=== PATIENT | female | born 2005 | race Caucasian/White ===

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

== ENCOUNTER → 2023-01-07 | Outpatient (CLI) | payer OTHER, SELFPAY | END | disposition home or self-care (01) | LOC: LABSPEC 01-08 07:03 | PROVIDERS: PCP Family Medicine; Visit Provider Family Medicine | DX: J02.9 Acute pharyngitis, unspecified (principal) | CPT/HCPCS: 87070; 87077; 87205 ==

== ENCOUNTER → 2023-04-22 | Outpatient (CLI) | payer OTHER, SELFPAY ==
[2023-04-22 16:05] LABS: Thyroid Stim Hormone (TSH) 1.59 uIU/mL (0.358-3.74)
== END | disposition home or self-care (01) ==
LOC: MFPLAB 11:16
PROVIDERS: Nurse Practitioner Family; PCP Family Medicine; Visit Provider Family Medicine
DX: Z13.29 Encounter for screening for other suspected endocrine disorder (principal)
CPT/HCPCS: 36415; 84443

== ENCOUNTER → 2024-09-21 | Outpatient (CLI) | payer OTHER, SELFPAY ==
[2024-09-21 18:03] LABS: Absolute Lymphocyte Count 2.14 X10^3/uL (0.83-4.51); Absolute Neutrophil Count 4.8 X10^3/uL (2.0-7.7); Basophil# 0.03 X10^3/uL; Basophil% 0.4 % (0-1); Eosinophil# 0.12 X10^3/uL; Eosinophils% 1.6 % (0-5); Hematocrit 42.7 % (37-47); Hemoglobin 14.5 g/dL (12.0-15.0); Lymphocyte # 2.14 X10^3/ul (0.83-4.51); Lymphocyte % 27.9 % (19-41); Mean Corpuscular Hgb 29.8 pg (27.0-32.0); Mean Corpuscular Volume 87.7 fL (81-99); Mean Platelet Vol. 9.2 fl (6.2-12.0); Monocyte# 0.52 X10^3/uL; Monocyte% 6.8 % (0-10); NRBC Flagged by Analyzer 0 % (0-5); Neutrophil # 4.84 X10^3/uL (2.7-7.7); Neutrophil % 63.2 % (47-70); Platelet Count 311 K/mm3 (150-450); RBC Distribution Width SD 38.5 fl (35.1-43.9); Red Blood Count 4.87 M/mm3 (4.2-5.4); White Blood Count 7.7 K/mm3 (4.4-11.0)
[2024-09-21 18:36] LABS: PTHIN 34 pg/mL (11-61)
[2024-09-21 18:46] LABS: ALB/GLOB Ratio 1.4 RATIO (0.9-2.4); AST(SGOT) 17 U/L (<=31); Alanine Aminotransfer ALT/SGPT 18 U/L (<=34); Albumin, Serum 4.5 g/dL (3.5-5.0); Alkaline Phosphatase 70 U/L (35-104); Anion Gap 13 (5-15); BUN 10 mg/dL (4-19); BUN/Creat Ratio 15.2 RATIO (10-20); Calcium 9.9 mg/dL (7.6-11.0); Calcium,Total 9.9 mg/dL (7.6-11.0); Chloride 102 mmol/L (98-108); Creatinine, Serum 0.68 mg/dL (0.70-1.20); EST Glomerular Filtration Rate 128 (>60); Follicle Stimulating Hormone 5.9 mIU/mL; Free T3 3.6 pg/mL (2.18-3.98); Globulin 3.2 g/dL (2.2-4.2); Glucose 81 mg/dL (70-99); Protein, Total 7.6 g/dL (5.9-8.4); Sodium Level 140 mmol/L (133-145); Total Bilirubin 0.18 mg/dL (0.00-1.30)
== END | disposition home or self-care (01) ==
PROVIDERS: PCP Family Medicine; Referring Provider Dermatology Pediatric Dermatology; Visit Provider Dermatology Pediatric Dermatology
DX: E28.2 Polycystic ovarian syndrome (principal); L64.8 Other androgenic alopecia; D89.89 Other specified disorders involving the immune mechanism, not elsewhere classified
CPT/HCPCS: 36415; 80053; 82157; 82310; 82533; 82627; 83001; 83970; 84146; 84270; 84402; 84403; 84439; 84443; 84481; 85025; 86376; 82626

== ENCOUNTER → 2024-09-22 | Outpatient (CLI) | payer OTHER, SELFPAY ==
--- OUTSIDE RECORDS SUMMARY | 2024-09-22 08:05 | XMS RPT_ITS | CCD ---
Author Organization [facility] Care Team Providers Care Stonemason Apprentice Name Role Phone Williams Kelly Admitting Unavailable Williams Kelly Attending Unavailable No Doctor Assigned, Nodr Primary Care Unavail able Vargas Santoro Unavailable Kayy Skelton Unavailable Unavailable Vargas Santoro Referring Unavailable Yvan Vargas Primary Care Unavailable Yvan Vargas Attending Unavailable Santoro, Vargas Primary Care Unavailable Santoro, Vargas Attending Unavailable Santoro, Vargas Primary Care Unavailable Santoro, Vargas Attending Unavailable Santoro, Vargas Referring Unavailable Unavailable Primary Care Provider Unavailabl e Allergies Allergy Classification Reported Allergen(s) Allergy Type Date of Onset Reaction(s) Facility Cephalosporins (antibiotic) (1 source) cefdinir Drug Allergy Hives/Urticaria [facility] Oseltamivir (1 source) Oseltamivir Drug Allergy Other [facility] Comment on above: WORSENING SYMPTOMS (6 sources) cefdinir; Translations: [CEFDINIR] Drug Allergy 1 Diarrhea, Hives [facility] Work Phone: (1 source) cefdinir Drug Allergy 1 [facility] Repository (4 sources) Oseltamivir; Translations: [OSELTAMIVIR] Drug Allergy 2 Other: See Comments [facility] Work Phone: Medications Current Medications Medication Drug Class(es) Dates Sig (Normalized) Sig (Original) amoxicillin 50 mg/ml oral suspension (2 sources) Penicillin-class Antibacterial Start: 06-09-2013 take 250 mg by mouth every twelve hours Amoxicillin Active 250 MG PO Q12H June 09, 2013 12:00am cetirizine hydrochloride 10 mg oral tablet (2 sources) Histamine-1 Receptor Antagonist Start: 06-09-2013 take 5 mg by mouth once daily Cetirizine Hcl (Zyrtec) 10 MG tablet Active 5 MG PO DAILY June 09, 2013 12:00am levoFLOXacin 750 mg oral tablet (2 sources) Quinolone Antimicrobial Start: 12-16-2020 take 750 mg by mouth once daily Levofloxacin Active 750 MG PO DAILY December 15, 2020 11:00pm Completed/Discontinued Medications Medication Drug Class(es) Dates Sig (Normalized) Sig (Original) busPIRone hydrochloride 5 mg oral tablet (3 sources) Start: 02-05-2022 busPIRone (BUSPAR) 5 mg tablet Ethinyl Estradiol / Norethindrone (3 sources) Estrogen Start: 03-27-2022 Norethindrone Acet-Ethinyl Est 1-20 mg-mcg per tablet ibuprofen 800 mg oral tablet (3 sources) Nonsteroidal Anti-inflammatory Drug Start: 04-14-2022 take 1 tablet by mouth every eight hours as needed for pain ibuprofen (MOTRIN) 800 mg tablet Indications: Flu-like symptoms Take 1 tablet by mouth every 8 hours as needed for pain. Take with food. 30 tablet 0 04/14/2022 Active Comment on above: Take 1 tablet by maria luz th every 8 hours as needed for pain. Take with food. ondansetron 4 mg disintegrating oral tablet (3 sources) Serotonin-3 Receptor Antagonist Start: 04-14-2022 take 1 tablet by mouth every six hours as needed for nausea and nausea ondansetron orally disintegrating (ZOFRAN ODT) 4 mg disintegrating tablet Indications: Nausea Take 1 tablet by mouth every 6 hours as needed for nausea/vomiting. 15 tablet 0 04/14/2022 Active Comment on above: Take 1 tablet by maria luz th every 6 hours as needed for nausea/vomiting. NEGATED: Highlighted row has not occurred!No Current Medications (1 source) No Current Medications Problems Active Problems Problem Classification Problem Date Documented Da te Episodic/Chronic Immunizations and screening for infectious disease (2 sources) Contact with or exposure to other viral diseases; Translations: [Close exposure to 2019-nCoV] Episodic Nausea and vomiting (1 source) Nausea; Translations: [Nausea] Episodic Other upper respiratory disease (1 source) Other seasonal allergic rhinitis; Translations: [Other seasonal allergic rhinitis] Onset: 03-15-2022 Chronic Other upper respiratory infections (1 source) Sore throat symptom; Translations: [Acute pharyngitis, unspecified] 01-06-2023 Episodic Pneumonia (except that caused by tuberculosis or sexually transmitted disease) (2 sources) Community acquired pneumonia; Translations: [Pneumonia, unspecified organism] Episodic Residual codes; unclassified (1 source) Influenza-like symptoms; Translations: [Other general symptoms and signs] Episodic Unclassified (2 sources) [facility] 11-02-2020 Comment on above: [facility] Viral infection (1 source) Viral disease; Translations: [Viral infection, unspecified] 01-06-2023 Episodic Viral infection (1 source) COVID-19; Translations: [COVID-19] Onset: 01-03-2022 Past or Other Problems Problem Classification Problem Date Documented Da te Episodic/Chronic Other connective tissue disease (1 source) Other specified soft tissue disorders; Translations: [Other specified soft tissue disorders] Onset: 11-07-2021 Episodic Results Test Name Value Interpretation Reference Range Facility CNOV 01-06-2023 CNOV Office Visit ([facility] ) ADIN PEARCE ([id number]) 1 F Date Time Provider Department 01/06/23 2:45 PM MESERET CARLOS [facility] During your visit today, we recorded the following information about you: Temperature Pulse Respiration Blood pressure 99.7 degrees 102/minute 18/minute 106/68 Weight 97.3 kg Meseret Carlos, CHRIS.DIRECTOR OF PUBLIC HEALTH 01/06/2023 3:14 PM Signed Subjective HPI Nontoxic-appearing female presents urgent care accompanied with mother. Chief complaint sore throat headache fever fatigue. Duration of symptoms 2 days. Associated symptoms listed above. Most predominant symptom today is sore throat. Noticed some white spots on back of her tonsils. Presents today for evaluation. No known sick contacts. Is a college student. Has not taken any OTC medications recently. Denies any patient is decreased range of motion of neck. Denies any high fever body aches chills productive cough chest pain shortness of breath pleuritic pain hemoptysis nausea vomiting abdominal pain change in bowel or bladder habits. Past medical history prescription medication use and allergies reviewed. .Patient presents with: Sore Throat: SHEPARD, fever x2 days History reviewed. No pertinent past medical history. History reviewed. No pertinent surgical history. ALLERGIES Cefdinir and Oseltamivir MEDICATIONS busPIRone (BUSPAR) 5 mg tablet Norethindrone Acet-Ethinyl Est 1-20 mg-mcg per tablet ibuprofen (MOTRIN) 800 mg tablet Take 1 tablet by mouth every 8 hours as needed for pain. Take with food. ondansetron orally disintegrating (ZOFRAN ODT) 4 mg disintegrating tablet Take 1 tablet by mouth every 6 hours as needed for nausea/vomiting. History reviewed. No pertinent family history. Social History Tobacco Use Smoking status: Never Passive exposure: Never Smokeless tobacco: Never BP 106/68 Pulse 102 Temp 37.6 ?C (99.7 ?F) Resp 18 Wt 97.3 kg (214 lb 6.4 oz) SpO2 98% Review of Systems Constitutional: Positive for chills, fever and malaise/fatigue. HENT: Positive for sore throat. Negative for congestion, ear discharge, ear pain and sinus pain. Eyes: Negative for blurred vision, pain, discharge and redness. Respiratory: Negative for cough, hemoptysis, sputum production, shortness of breath, wheezing and stridor. Cardiovascular: Negative for chest pain. Gastrointestinal: Negative for abdominal pain, diarrhea, nausea and vomiting. Musculoskeletal: Positive for myalgias. Skin: Negative for itching and rash. Neurological: Negative for dizziness and headaches. Objective Physical Exam Constitutional: General: She is not in acute distress. Appearance: She is not diaphoretic. HENT: Head: Normocephalic. Jaw: No trismus, tenderness, swelling or pain on movement. Right Ear: Tympanic membrane, ear canal and external ear normal. Left Ear: Tympanic membrane, ear canal and external ear normal. Nose: Congestion present. Mouth/Throat: Lips: [place]. Mouth: Mucous membranes are moist. Pharynx: Oropharynx is clear. Uvula midline. Posterior oropharyngeal erythema present. No pharyngeal swelling, oropharyngeal exudate or uvula swelling. Tonsils: Tonsillar exudate present. No tonsillar abscesses. 2+ on the right. 2+ on the left. Eyes: Conjunctiva/sclera: Conjunctivae normal. Pupils: Pupils are equal, round, and reactive to light. Cardiovascular: Rate and Rhythm: Normal rate and regular rhythm. Heart sounds: Normal heart sounds. Pulmonary: Effort: Pulmonary effort is normal. No tachypnea, accessory muscle usage or respiratory distress. Breath sounds: Normal breath sounds. No stridor. No wheezing, rhonchi or rales. Abdominal: General: There is no distension. Palpations: Abdomen is soft. Tenderness: There is no abdominal tenderness. There is no guarding or rebound. Musculoskeletal: Cervical back: Normal range of motion and neck supple. No edema, erythema, rigidity or tenderness. No pain with movement. Normal range of motion. Lymphadenopathy: Cervical: No cervical adenopathy. Skin: General: Skin is warm and dry. Neurological: Mental Status: She is alert and oriented to person, place, and time. ASSESSMENT/PLAN: 1. Sore throat - ICD9: 462, ICD10: J02.9 (primary diagnosis) - STREP A MOLECULAR (POC) 2. Viral illness - ICD9: 079.99, ICD10: B34.9 Strep test negative. Diagnosed with viral illness. Suspicious of mono. Will not test due to the 2 days of illness at this time. Follow-up with PCP on Saturday if symptoms are not improving. Red flags prompt reevaluation discussed. Patient was educated on supportive therapies. Patient was instructed to immediately proceed to emergency room for any new, worsening, or symptoms lasting longer than anticipated. The patient's clinical presentation is otherwise unremarkable at this time. Based on exam and clinical finding, the patient is stable f (more content not included)... Normal [facility] STREP A MOLECULAR (POC)on Procedural Control Valid [facility] Strep A (POCT) Negative Negative [facility] 04-15-2022 CNPN Telephone ([facility]WSTR) ADIN PEARCE ([id number]) 1 F Date Time Provider Department 04/15/22 ADRI RUSSELL During your visit today, we recorded the following information about you: Adri Russell APRN.CNP 04/15/2022 7:42 AM Signed Please notify of POSITIVE INFLUENZA A and negative covid test. Continue comfort measures for symptoms as discussed at visit. Any worsening symptoms follow up with PCP or ER. KING Payton LPN 04/15/2022 8:37 AM Signed Patient's mother notified.Rakel Boogie LPN Allergies As of Date: 04/15/2022 Noted Allergy Reaction CEFDINIR 12/15/2020 6 - Diarrhea 4 - Hives OSELTAMIVIR 04/14/2022 14 - Other: See Comments Date Reviewed: Never Reviewed Reason for Visit: Results [95] Prescriptions as of 04/15/2022 - busPIRone (BUSPAR) 5 mg tablet - Norethindrone Acet-Ethinyl Est 1-20 mg-mcg per tablet - ibuprofen (MOTRIN) 800 mg tablet Take 1 tablet by mouth every 8 hours as needed for pain. Take with food. - ondansetron orally disintegrating (ZOFRAN ODT) 4 mg disintegrating tablet Take 1 tablet by mouth every 6 hours as needed for nausea/vomiting. Problem List As Of Date: 04/15/2022 (None) Encounter Status:Closed by RAKEL BOOGIE LPN on 04/15/22 [facility] CNOVon 04-14-2022 CNOV Office Visit (UCWSTR ) ADIN PEARCE ([id number]) 1 F Date Time Provider Department 04/14/22 10:30 AM ERIN BAILEY During your visit today, we recorded the following information about you: Temperature Pulse Respiration Blood pressure 100.4 degrees 98/minute 16/minute 122/70 Weight 98.9 kg Erin Bailey PA-C 04/14/2022 11:24 AM Signed Subjective HPI HPI Adin Pearce is a 16 year old female who presents today for CC of sore throat, congestion, body aches, chills, facial pain/perssure, chills/sweats since yesterday. Notes some nausea as well, but could be from the covid swab. Pt has tried advil with minimal relief in symptoms. BP 122/70 Pulse 98 Temp (!) 38 ?C (100.4 ?F) Resp 16 Wt 98.9 kg (218 lb) SpO2 96% ALLERGIES Allergen Reactions Cefdinir Diarrhea, Hives Oseltamivir Other: See Comments There is no problem list on file for this patient. No family history on file. Social History Tobacco Use Smoking status: Never Passive exposure: Never Smokeless tobacco: Never Review of Systems Constitutional: Positive for chills, fever and malaise/fatigue. HENT: Positive for congestion and sinus pain. Negative for ear pain and sore throat. Respiratory: Negative for cough, sputum production, shortness of breath and wheezing. Gastrointestinal: Positive for nausea. Negative for vomiting. Musculoskeletal: Positive for back pain and myalgias. Neurological: Negative for headaches. Objective BP 122/70 Pulse 98 Temp (!) 38 ?C (100.4 ?F) Resp 16 Wt 98.9 kg (218 lb) SpO2 96% Physical Exam Constitutional: General: She is not in acute distress. Appearance: She is well-developed. She is ill-appearing (Mild; Generally fatigued appearance.). She is not toxic-appearing. HENT: Head: Normocephalic. Nose: Mucosal edema present. No rhinorrhea. Right Sinus: No maxillary sinus tenderness or frontal sinus tenderness. Left Sinus: No maxillary sinus tenderness or frontal sinus tenderness. Mouth/Throat: Pharynx: Uvula midline. Posterior oropharyngeal erythema present. No oropharyngeal exudate. Tonsils: No tonsillar abscesses. Eyes: General: Lids are normal. Conjunctiva/sclera: Conjunctivae normal. Cardiovascular: Rate and Rhythm: Normal rate and regular rhythm. Heart sounds: S1 normal and S2 normal. No friction rub. Pulmonary: Effort: Pulmonary effort is normal. Breath sounds: Normal breath sounds. No wheezing, rhonchi or rales. Lymphadenopathy: Head: Right side of head: No submental, submandibular, tonsillar, preauricular, posterior auricular or occipital adenopathy. Left side of head: No submental, submandibular, tonsillar, preauricular, posterior auricular or occipital adenopathy. Cervical: Right cervical: No superficial or posterior cervical adenopathy. Left cervical: No superficial or posterior cervical adenopathy. Neurological: Mental Status: She is alert and oriented to person, place, and time. ASSESSMENT/PLAN: 1. Flu-like symptoms - ICD9: 780.99, ICD10: R68.89 (primary diagnosis) Suspect flu based on clinical presentation. Covid and flu testing ordered; Results will be released to [facility] in 24-48 hours.Discussed quarantine, social distancing, hand washing/proper hygiene. Rest, fluids, Symptomatic tx with IBU and Tylenol discussed. - IBUPROFEN 800 MG TABLET 2. Nausea - ICD9: 787.02, ICD10: R11.0 Rx for zofran to assist w/ nausea. Discussed medication indications, proper use, and potential adverse effects. All questions and concerns addressed to patient satisfaction. - ONDANSETRON 4 MG DISINTEGRATING TABLET Pt advised to see PCP if symptoms persist or progress. Reviewed red flags with patient and when to seek care sooner. The patient indicates understanding of these issues and agrees with the plan. DAI Tsai PA-C 04/14/2022 10:47 AM Addendum Sudafed behind the counter Can alternate between Ibuprofen (800 MG) and Tylenol (1000) mg every 3-4 hours Max dosing of Ibuprofen 2400 mg in 24 hour period Max dosing of Tylenol is 3000 mg in 24 hour period [facility] PATIENT INFO INFLUENZA INTRODUCTION Influenza (commonly called the flu) is a highly contagious illness that can occur in children or adults of any age. It occurs more often in the winter months because people spend more time in close contact with one another. The flu is spread easily from [id number] by coughing, sneezing, or touching surfaces. Every year, complications of the flu require more than 200,000 people in the [place] to be hospitalized. Serious illness is more likely in the very young, older adults, women, and people who have certain health problems such as asthma or other forms of lung disease. There have been several widespread flu outbreaks (called pandemics), which led to the deaths of many people world (more content not included)... Normal [facility] Influenza virus A and B RNA and SARS-CoV-2 (COVID-19) N gene panel YOVANY+probe (Resp)on 04-14-2022 FLUAV RNA YOVANY+probe Ql (Unsp spec) Positive Abnormal Negative for Influenza A by RT-PCR [facility] FLUBV RNA YOVANY+probe Ql (Unsp spec) Negative Negative for Influenza B by RT-PCR [facility] SARS-CoV-2 (COVID-19) RNA YOVANY+probe Ql (Resp) SARS-CoV-2 (Agent of COVID-19) Not Detected by RT-PCR or equivalent method. Not Detected [facility] Allergen, MedhatRasjagdish 2021 COMMENT Comment Normal . [facility] Comment on above: Order Comment: Order Date: 03/12/22 Order Info: [id number] - [facility] Comments: confirm dog allergy Result Comment: Chris perez of Specific IgE Class Description of Class ----- < 0.10 0 Negative 0.10 - 0.31 0/I Equivocal/Low 0.32 - 0.55 I Low 0.56 - 1.40 II Moderate 1.41 - 3.90 III High 3.91 - 19.00 IV Very High 19.01 - 100.00 V Very High >100.00 Very High Performed By: #### L 5500.0300 #### [facility] [address] [place], [address] Mouse Urine <0.10 Normal Class 0 [facility] Comment on above: Order Comment: Order Date: 03/12/22 Order Info: [id number] - [facility] Comments: confirm dog allergy Result Comment: Perf ormed at: - [facility] [address] [id number] Sample Display Preparer: Roque Flor MD, Phone: [phone] Performed By: #### L [id number] #### [facility] [address] [place], [address] Allergen, Kaylynn 2021 A. ALTERNATA <0.10 Normal Class 0 [facility] Comment on above: Order Comment: Order Date: 03/12/22 Order Info: [id number] - [facility] Comments: confirm dog allergy Performed By: #### L 5500.0300 #### [facility] [address] [place], [address] BERMUDA GRASS <0.10 Normal Class 0 [facility] Comment on above: Order Comment: Order Date: 03/12/22 Order Info: [id number] - [facility] Comments: confirm dog allergy Performed By: #### L 5500.0300 #### [facility] [address] [place], [address] [place], [place] <0.10 Normal Class 0 [facility] Comment on above: Order Comment: Order Date: 03/12/22 Order Info: [id number] - [facility] Comments: confirm dog allergy Performed By: #### L 5500.0300 #### [facility] [address] [place], [address] CAT HAIR/DANDER <0.10 Normal Class 0 [facility] Comment on above: Order Comment: Order Date: 03/12/22 Order Info: [id number] - [facility] Comments: confirm dog allergy Performed By: #### L 5500.0300 #### [facility] [address] [place], [address] D FARINAE MITE 4.24 kU/L Abnormal Class IV [facility] Comment on above: Order Comment: Order Date: 03/12/22 Order Info: [id number] - [facility] Comments: confirm dog allergy Performed By: #### L 5500.0300 #### [facility] [address] [place], [address] D PTERONYSSINUS 2.50 kU/L Abnormal Class III [facility] Comment on above: Order Comment: Order Date: 03/12/22 Order Info: [id number] - [facility] Comments: confirm dog allergy Performed By: #### L 5500.0300 #### [facility] [address] [place], [address] DOG EPITHELIA 0.35 kU/L Abnormal Class I [facility] Comment on above: Order Comment: Order Date: 03/12/22 Order Info: [id number] - [facility] Comments: confirm dog allergy Performed By: #### L 5500.0300 #### [facility] [address] [place], [address] ELM,AMER WHITE <0.10 Normal Class 0 [facility] Comment on above: Order Comment: Order Date: 03/12/22 Order Info: [id number] - [facility] Comments: confirm dog allergy Performed By: #### L 5500.0300 #### [facility] [address] [place], [address] OAK, WHITE <0.10 Normal Class 0 [facility] Comment on above: Order Comment: Order Date: 03/12/22 Order Info: [id number] - [facility] Comments: confirm dog allergy Performed By: #### L 5500.0300 #### [facility] [address] [place], [address] PLANTAIN,ENGLSH <0.10 Normal Class 0 [facility] Comment on above: Order Comment: Order Date: 03/12/22 Order Info: [id number] - [facility] Comments: confirm dog allergy Performed By: #### L 5500.0300 #### [facility] [address] [place], [address] RAGWEED SH/COM <0.10 Normal Class 0 [facility] Comment on above: Order Comment: Order Date: 03/12/22 Order Info: [id number] - [facility] Comments: confirm dog allergy Performed By: #### L 5500.0300 #### [facility] [address] [facility] [place], [address] COVID 19, YOVANY [facility](RT COLLECT )on 12-28-2021 SARS-CoV-2 (COVID-19) RNA YOVANY+probe Ql (Unsp spec) Detected Normal Not Detect [facility] Comment on above: Result Comment: Norm al Reference Range: Not Detected Method:(RT-PCR) real-time reverse transcriptase PCR [employer] ABBY Instrument *The Food and Drug Administration (FDA) has issued an Emergency Use Authorization (EAU) for the ABBY SARS-CoV-2 Assay for the rapid detection of the virus that causes COVID-19. This test has been validated, but the FDAs independent review of this validation is pending. *Negative results do not preclude infection and should not be used as the sole basis for treatment or patient management. Optimum specimen types and timing for peak viral levels during infections caused by SARS-CoV-2 have not been determined. Collection of multiple specimens from the same patient may be necessary to detect the virus. The possibility of a false negative result should be considered if the patient has clinical presentation or has had recent exposure. Performed By: #### L 3400.2405 #### [facility] [address] [facility] [address] [place], [place], [address] Laboratory - Microbiology an d Antimicrobial susceptibilityon 12-28-2021 SARS-CoV-2 (COVID-19) RNA YOVANY+probe Ql (Unsp spec) Detected Not Detect [facility] Work Phone: Comment on above: Normal Reference Ran ge: Not DetectedMethod:(RT-PCR) real-time reverse transcriptase PCRLuminex ABBY Instrument*The Food and Drug Administration (FDA) has issued an Emergency Use Authorization (EAU) for the ABBY SARS-CoV-2 Assay for the rapid detection of the virus that causes COVID-19. This test has been validated, but the FDAs independent review of this validation is pending.*Negative results do not preclude infection and should not be used as the sole basis for treatment or patient management. Optimum specimen types and timing for peak viral levels during infections caused by SARS-CoV-2 have not been determined. Collection of multiple specimens from the same patient may be necessary to detect the virus. The possibility of a false negative result should be considered if the patient has clinical presentation or has had recent exposure. Absolute lymphocyte counton 11-02-2021 Lymphocytes Auto (Unsp spec) [#/Vol] 2.27 10*3/uL 0.83-4.51 [facility] Work Phone: Basophil percentageon 2021 Basophils/100 WBC (Bld) 0.6 % 0-1 [facility] Work Phone: Bilirubin [Mass/Vol] 0.20 mg/dL 0.20-1.00 [facility] Work Phone: Comment on above: For patients on eltr ombopag therapy, use of Dimension [place] TBIL is not recommended. Chloride [Moles/Vol] 105 mmol/L 98-107 [facility] Work Phone: Eosinophils/100 WBC (Bld) 0.7 % 0-3 [facility] Work Phone: Glucose [Mass/Vol] 81 mg/dL 74-106 [facility] Work Phone: Neutrophils (Bld) [#/Vol] 5.4 10*3/uL 2.0-7.7 [facility] Work Phone: Neutrophils/100 WBC (Bld) 65.2 % 34-64 [facility] Work Phone: Potassium [Moles/Vol] 3.9 mmol/L 3.5-5.1 [facility] Work Phone: Protein [Mass/Vol] 8.2 g/dL 6.4-8.2 [facility] Work Phone: Sodium [Moles/Vol] 137 mmol/L 136-145 [facility] Work Phone: WBC (Bld) [#/Vol] 8.3 10*3/uL 4.5-13.0 [facility] Work Phone: Blood erythrocytes count (nu mber/volume)on 11-02-2021 RBC (Bld) [#/Vol] 4.93 10*6/uL 4.1-4.8 [facility] Work Phone: Blood hemoglobin measurement (mass/volume)on 11-02-2021 Hemoglobin (Bld) [Mass/Vol] 14.1 g/dL 12.0-15.0 [facility] Work Phone: Blood lymphocytes/100 leukoc yteson 11-02-2021 Lymphocytes/100 WBC (Bld) 27.5 % 25-45 [facility] Work Phone: [phone] Blood monocytes/100 leukocyt eson 11-02-2021 Monocytes/100 WBC (Bld) 5.6 % 3-6 [facility] Work Phone: Blood platelet mean volumeon 11-02-2021 Platelet mean volume (Bld) [Entitic vol] 9.5 fL 6.2-12.0 [facility] Work Phone: CBC W/Diff, Automatedon - Absolute Lymph 2.27 X10 3/uL Normal 0.83-4.51 [facility] Comment on above: Order Comment: Order Date: 11/02/21 Order Info: 0184-1 - CBCD Performed By: #### L 503.6550, L100.0100, L501.9520, L500.4050, L503.6150 #### [facility] [address] [place], [address] Absolute Neut 5.4 X10 3/uL Normal 2.0-7.7 [facility] Comment on above: Order Comment: Order Date: 11/02/21 Order Info: 0184-1 - CBCD Performed By: #### L 503.6550, L100.0100, L501.9520, L500.4050, L503.6150 #### [facility] [address] [place], [address] Basophils/100 WBC (Bld) 0.6 % Normal 0-1 [facility] Comment on above: Order Comment: Order Date: 11/02/21 Order Info: 0184-1 - CBCD Performed By: #### L 503.6550, L100.0100, L501.9520, L500.4050, L503.6150 #### [facility] [address] [place], [address] Eosinophils/100 WBC (Bld) 0.7 % Normal 0-3 [facility] Comment on above: Order Comment: Order Date: 11/02/21 Order Info: 0184-1 - CBCD Performed By: #### L 503.6550, L100.0100, L501.9520, L500.4050, L503.6150 #### [facility] [address] [place], [address] Erythrocyte distribution width (RBC) [Ratio] 11.8 % Normal 11.6-14.6 [facility] Comment on above: Order Comment: Order Date: 11/02/21 Order Info: 0184-1 - CBCD Performed By: #### L 503.6550, L100.0100, L501.9520, L500.4050, L503.6150 #### [facility] [address] [place], [address] Hematocrit (Bld) [Volume fraction] 42.8 % Normal 37-46 [facility] Comment on above: Order Comment: Order Date: 11/02/21 Order Info: 0184-1 - CBCD Performed By: #### L 503.6550, L100.0100, L501.9520, L500.4050, L503.6150 #### [facility] [address] [place], [address] Hemoglobin (Bld) [Mass/Vol] 14.1 g/dL Normal 12.0-15.0 [facility] Comment on above: Order Comment: Order Date: 11/02/21 Order Info: 0184-1 - CBCD Performed By: #### L 503.6550, L100.0100, L501.9520, L500.4050, L503.6150 #### [facility] [address] [place], [address] IG% 0.400 Normal 0.0-0.9 [facility] Comment on above: Order Comment: Order Date: 11/02/21 Order Info: 0184-1 - CBCD Result Comment: IG% - Immature Granulocytes (promyelocytes, myelocytes and metamyelocytes) > 1% indicates that a LEFT SHIFT is Present. Performed By: #### L 503.6550, L100.0100, L501.9520, L500.4050, L503.6150 #### [facility] [address] [place], [address] Lymphocytes/100 WBC (Bld) 27.5 % Normal 25-45 [facility] Comment on above: Order Comment: Order Date: 11/02/21 Order Info: 0184-1 - CBCD Performed By: #### L 503.6550, L100.0100, L501.9520, L500.4050, L503.6150 #### [facility] [address] [place], [address] MCH (RBC) [Entitic mass] 28.6 pg Normal 25.0-35.0 [facility] Comment on above: Order Comment: Order Date: 11/02/21 Order Info: 0184-1 - CBCD Performed By: #### L 503.6550, L100.0100, L501.9520, L500.4050, L503.6150 #### [facility] [address] [place], [address] MCHC (RBC) [Mass/Vol] 32.9 g/dL Normal 32-36 [facility] Comment on above: Order Comment: Order Date: 11/02/21 Order Info: 0184-1 - CBCD Performed By: #### L 503.6550, L100.0100, L501.9520, L500.4050, L503.6150 #### [facility] [address] [place], [address] MCV (RBC) [Entitic vol] 86.8 fL Normal 78-96 [facility] Comment on above: Order Comment: Order Date: 11/02/21 Order Info: 0184-1 - CBCD Performed By: #### L 503.6550, L100.0100, L501.9520, L500.4050, L503.6150 #### [facility] [address] [place], [address] Monocytes/100 WBC (Bld) 5.6 % Normal 3-6 [facility] Comment on above: Order Comment: Order Date: 11/02/21 Order Info: 0184-1 - CBCD Performed By: #### L 503.6550, L100.0100, L501.9520, L500.4050, L503.6150 #### [facility] [address] [place], [address] Neutrophils/100 WBC (Bld) 65.2 % High 34-64 [facility] Comment on above: Order Comment: Order Date: 11/02/21 Order Info: 0184-1 - CBCD Performed By: #### L 503.6550, L100.0100, L501.9520, L500.4050, L503.6150 #### [facility] [address] [place], [address] Nucleated RBC (Bld) [#/Vol] 0 10*3/uL Normal 0-5 [facility] Comment on above: Order Comment: Order Date: 11/02/21 Order Info: 0184-1 - CBCD Performed By: #### L 503.6550, L100.0100, L501.9520, L500.4050, L503.6150 #### [facility] [address] [place], [address] Platelet mean volume (Bld) [Entitic vol] 9.5 fL Normal 6.2-12.0 [facility] Comment on above: Order Comment: Order Date: 11/02/21 Order Info: 0184- - CBCD Performed By: #### L 503.6550, L100.0100, L501.9520, L500.4050, L503.6150 #### [facility] [address] [place], [address] Platelets (Bld) [#/Vol] 325 10*3/uL Normal 150-450 [facility] Comment on above: Order Comment: Order Date: 11/02/21 Order Info: 018- - CBCD Performed By: #### L 503.6550, L100.0100, L501.9520, L500.4050, L503.6150 #### [facility] [address] [place], [address] RBC (Bld) [#/Vol] 4.93 10*6/uL High 4.1-4.8 [facility] Comment on above: Order Comment: Order Date: 11/02/21 Order Info: 0184- - CBCD Performed By: #### L 503.6550, L100.0100, L501.9520, L500.4050, L503.6150 #### [facility] [address] [place], [address] RDW SD 37.4 fl Normal 35.1-43.9 [facility] Comment on above: Order Comment: Order Date: 11/02/21 Order Info: 0184-1 - CBCD Performed By: #### L 503.6550, L100.0100, L501.9520, L500.4050, L503.6150 #### [facility] [address] [place], [address] WBC (Bld) [#/Vol] 8.3 10*3/uL Normal 4.5-13.0 [facility] Comment on above: Order Comment: Order Date: 11/02/21 Order Info: 0184-1 - CBCD Performed By: #### L 503.6550, L100.0100, L501.9520, L500.4050, L503.6150 #### [facility] [address] [place], [address] Comprehensive Metabolic Prof ilon 11-02-2021 Albumin [Mass/Vol] 4.1 g/dL Normal 3.2-5.0 [facility] Comment on above: Order Comment: Order Date: 11/02/21 Order Info: 07-1 - CMP Order Info: 3015-06 - TSH Order Info: 2497-07 - FE Order Info: 2275-07 - MOOKIE Performed By: #### L 503.6550, L100.0100, L501.9520, L500.4050, L503.6150 #### [facility] [address] [place], [address] Albumin/Globulin [Mass ratio] 1.0 {ratio} Normal 0.9-2.4 [facility] Comment on above: Order Comment: Order Date: 11/02/21 Order Info: 0786- - CMP Order Info: 3015-06 - TSH Order Info: 2497-07 - FE Order Info: 2275-07 - MOOKIE Performed By: #### L 503.6550, L100.0100, L501.9520, L500.4050, L503.6150 #### [facility] [address] [place], [address] ALK P 74 U/L Normal 47-119 [facility] Comment on above: Order Comment: Order Date: 11/02/21 Order Info: 0786-1 - CMP Order Info: 3 - TSH Order Info: 24911-16 - FE Order Info: 4 - MOOKIE Performed By: #### L 503.6550, L100.0100, L501.9520, L500.4050, L503.6150 #### [facility] [address] [place], [address] ALT [Catalytic activity/Vol] 20 U/L Normal 13-56 [facility] Comment on above: Order Comment: Order Date: 11/02/21 Order Info: 0786-1 - CMP Order Info: 6-3 - TSH Order Info: 2497-07 - FE Order Info: 2275-07 - MOOKIE Performed By: #### L 503.6550, L100.0100, L501.9520, L500.4050, L503.6150 #### [facility] [address] [place], [address] AST [Catalytic activity/Vol] 16 U/L Normal 15-37 [facility] Comment on above: Order Comment: Order Date: 11/02/21 Order Info: 785-1 - CMP Order Info: 3015-06 - TSH Order Info: 2497-07 - FE Order Info: 2275-07 - MOOKIE Performed By: #### L 503.6550, L100.0100, L501.9520, L500.4050, L503.6150 #### [facility] [address] [place], [address] Bilirubin [Mass/Vol] 0.20 mg/dL Normal 0.20-1.00 [facility] Comment on above: Order Comment: Order Date: 11/02/21 Order Info: 785-04 - CMP Order Info: 3 - TSH Order Info: 2497-07 FE Order Info: 2275-07 - MOOKIE Result Comment: For patients on eltrombopag therapy, use of Dimension [place] TBIL is not recommended. Performed By: #### L 503.6550, L100.0100, L501.9520, L500.4050, L503.6150 #### [facility] [address] [place], [address] BUN/CRE 9.7 RATIO Low 10-20 [facility] Comment on above: Order Comment: Order Date: 11/02/21 Order Info: 785-04 - CMP Order Info: 3 - TSH Order Info: 2497-07 Order Info: 2275-07 - MOOKIE Performed By: #### L 503.6550, L100.0100, L501.9520, L500.4050, L503.6150 #### [facility] [address] [place], [address] CA,Total 9.1 mg/dL Normal 8.5-10.1 [facility] Comment on above: Order Comment: Order Date: 11/02/21 Order Info: 785-04 - CMP Order Info: 3015-06 - TSH Order Info: 2497-07 FE Order Info: 2275-07 - MOOKIE Performed By: #### L 503.6550, L100.0100, L501.9520, L500.4050, L503.6150 #### [facility] [address] [place], [address] Chloride [Moles/Vol] 105 mmol/L Normal 98-107 [facility] Comment on above: Order Comment: Order Date: 11/02/21 Order Info: 785-04 - CMP Order Info: 3015-06 - TSH Order Info: 2497-07 FE Order Info: 2275-07 - MOOKIE Performed By: #### L 503.6550, L100.0100, L501.9520, L500.4050, L503.6150 #### [facility] [address] [place], [address] CO2 [Moles/Vol] 25.0 mmol/L Normal 21.0-32.0 [facility] Comment on above: Order Comment: Order Date: 11/02/21 Order Info: 785-04 - CMP Order Info: 3 - TSH Order Info: 2497-07 FE Order Info: 2275-07 - MOOIKE Performed By: #### L 503.6550, L100.0100, L501.9520, L500.4050, L503.6150 #### [facility] [address] [place], [address] Creatinine [Mass/Vol] 0.83 mg/dL Normal 0.55-1.02 [facility] Comment on above: Order Comment: Order Date: 11/02/21 Order Info: 0786-1 - CMP Order Info: 3016-3 - TSH Order Info: 2497-07 - FE Order Info: 2275-07 - MOOKIE Result Comment: The validity of the calculated GFR GFRAA in patients over 70 years has not been determined. Clinical correlation is essential. Performed By: #### L 503.6550, L100.0100, L501.9520, L500.4050, L503.6150 #### [facility] [address] [place], [address] EST GFR - AA 116 mL/min Normal >60 [facility] Comment on above: Order Comment: Order Date: 11/02/21 Order Info: 785-04 - CMP Order Info: 3015-06 - TSH Order Info: 2497-07 - Order Info: 2275-07 - MOOKIE Result Comment: Afri can British GFR Calc Performed By: #### L 503.6550, L100.0100, L501.9520, L500.4050, L503.6150 #### [facility] [address] [place], [address] GAP 7 Normal 5-15 [facility] Comment on above: Order Comment: Order Date: 11/02/21 Order Info: 785-04 - CMP Order Info: 3015-06 - TSH Order Info: 2497-07 - FE Order Info: 2275-07 - MOOKIE Performed By: #### L 503.6550, L100.0100, L501.9520, L500.4050, L503.6150 #### [facility] [address] [place], [address] GFR/1.73 sq M.predicted among non-blacks MDRD (S/P/Bld) [Vol rate/Area] 96 mL/min/{1.73_m2} Normal >60 [facility] Comment on above: Order Comment: Order Date: 11/02/21 Order Info: 785-1 - CMP Order Info: 3 - TSH Order Info: 2497-07 - FE Order Info: 2275-07 - MOOKIE Result Comment: Non- GFR Calc Performed By: #### L 503.6550, L100.0100, L501.9520, L500.4050, L503.6150 #### [facility] [address] [place], [address] Globulin (S) [Mass/Vol] 4.1 g/dL Normal 2.2-4.2 [facility] Comment on above: Order Comment: Order Date: 11/02/21 Order Info: 785-04 - CMP Order Info: 3 - TSH Order Info: 2497-07 - FE Order Info: 2275-07 - MOOKIE Performed By: #### L 503.6550, L100.0100, L501.9520, L500.4050, L503.6150 #### [facility] [address] [place], [address] Glucose [Mass/Vol] 81 mg/dL Normal 74-106 [facility] Comment on above: Order Comment: Order Date: 11/02/21 Order Info: 785-04 - CMP Order Info: 3 - TSH Order Info: 2497-07 - FE Order Info: 2275-07 - MOOKIE Performed By: #### L 503.6550, L100.0100, L501.9520, L500.4050, L503.6150 #### [facility] [address] [place], [address] Potassium [Moles/Vol] 3.9 mmol/L Normal 3.5-5.1 [facility] Comment on above: Order Comment: Order Date: 11/02/21 Order Info: 1 - CMP Order Info: 3015-06 - TSH Order Info: 2497-07 - FE Order Info: 2275-07 - MOOKIE Performed By: #### L 503.6550, L100.0100, L501.9520, L500.4050, L503.6150 #### [facility] [address] [place], [address] Sodium [Moles/Vol] 137 mmol/L Normal 136-145 [facility] Comment on above: Order Comment: Order Date: 11/02/21 Order Info: 785-1 - CMP Order Info: 3 - TSH Order Info: 2497-07 FE Order Info: 2275-07 - MOOKIE Performed By: #### L 503.6550, L100.0100, L501.9520, L500.4050, L503.6150 #### [facility] [address] [place], [address] T PROT 8.2 g/dL Normal 6.4-8.2 [facility] Comment on above: Order Comment: Order Date: 11/02/21 Order Info: 785-04 - CMP Order Info: 3015-06 - TSH Order Info: 2497-07 Order Info: 2275-07 - MOOKIE Performed By: #### L 503.6550, L100.0100, L501.9520, L500.4050, L503.6150 #### [facility] [address] [place], [address] Urea nitrogen [Mass/Vol] 8 mg/dL Normal 7-18 [facility] Comment on above: Order Comment: Order Date: 11/02/21 Order Info: 785-04 - CMP Order Info: 3 - TSH Order Info: 2497-07 Order Info: 2275-07 - MOOKIE Performed By: #### L 503.6550, L100.0100, L501.9520, L500.4050, L503.6150 #### [facility] [address] [place], [address] Determination of erythrocyte mean corpuscular volume (MCV)on 11-02-2021 MCV (RBC) [Entitic vol] 86.8 fL 78-96 [facility] Work Phone: Ferritinon 11-02-2021 Ferritin [Mass/Vol] 35 ng/mL Normal 8-252 [facility] Comment on above: Order Comment: Order Date: 11/02/21 Order Info: 785-1 - CMP Order Info: 3015-3 - TSH Order Info: 4 - FE Order Info: 2275-07 - MOOKIE Performed By: #### L 503.6550, L100.0100, L501.9520, L500.4050, L503.6150 #### [facility] [address] [place], [address] Hematocrit Auto (Bld) [Volum e fraction]on 11-02-2021 Hematocrit (Bld) [Volume fraction] 42.8 % 37-46 [facility] Work Phone: Ironon 11-02-2021 Iron [Mass/Vol] 78 ug/dL Normal 50-170 [facility] Comment on above: Order Comment: Order Date: 11/02/21 Order Info: 785-04 - CMP Order Info: 3015-06 - TSH Order Info: 2497-07 - FE Order Info: 2275-07 - MOOKIE Performed By: #### L 503.6550, L100.0100, L501.9520, L500.4050, L503.6150 #### [facility] [address] [place], [address] Iron measurement (mass/mass) on 11-02-2021 Iron (Unsp spec) [Mass/Mass] 78 ug/dL 50-170 [facility] Work Phone: Laboratory - Chemistry and C hemistry - challengeon 11-02-2021 ALP [Catalytic activity/Vol] 74 U/L 47-119 [facility] Work Phone: ALT [Catalytic activity/Vol] 20 U/L 13-56 [facility] Work Phone: CO2 [Moles/Vol] 25.0 mmol/L 21.0-32.0 [facility] Work Phone: Globulin (S) [Mass/Vol] 4.1 g/dL 2.2-4.2 [facility] Work Phone: Urea nitrogen/Creatinine [Mass ratio] 9.7 mg/mg 10-20 [facility] Work Phone: Laboratory - Hematology and Cell countson 11-02-2021 Erythrocyte distribution width (RBC) [Entitic vol] 37.4 fL 35.1-43.9 [facility] Work Phone: Erythrocyte distribution width (RBC) [Ratio] 11.8 % 11.6-14.6 [facility] Work Phone: Immature granulocytes/100 WBC (Bld) 0.400 % 0.0-0.9 [facility] Work Phone: Comment on above: IG% - Immature Granu locytes (promyelocytes, myelocytes and metamyelocytes) > 1% indicates that a LEFT SHIFT is Present. MCH (RBC) [Entitic mass] 28.6 pg 25.0-35.0 [facility] Work Phone: Nucleated RBC/100 WBC (Bld) [Ratio] 0 % 0-5 [facility] Work Phone: MCHC Auto (RBC) [Mass/Vol]on 11-02-2021 MCHC (RBC) [Mass/Vol] 32.9 g/dL 32-36 [facility] Work Phone: No Panel Informationon 11-02 Estimated GFR (MDRD) Amer 116 mL/min >60 [facility] Work Phone: Comment on above: GFR Calc Estimated GFR (MDRD) Non-Af Amer 96 mL/min >60 [facility] Work Phone: Comment on above: Non- GFR Calc Thyroid Stimulating Hormone (TSH) 1.57 uIU/mL 0.358-3.74 [facility] Work Phone: Platelets bldon 11-02-2021 Platelets (Bld) [#/Vol] 325 10*3/uL 150-450 [facility] Work Phone: Serum or plasma albumin diya urement (mass/volume)on 11-02-2021 Albumin [Mass/Vol] 4.1 g/dL 3.2-5.0 [facility] Work Phone: Serum or plasma albumin/glob ulin mass ratioon 11-02-2021 Albumin/Globulin [Mass ratio] 1.0 {ratio} 0.9-2.4 [facility] Work Phone: Serum or plasma calcium diya urement (mass/volume)on 11-02-2021 Calcium [Mass/Vol] 9.1 mg/dL 8.5-10.1 [facility] Work Phone: Serum or plasma creatinine m easurement (mass/volume)on 11-02-2021 Creatinine [Mass/Vol] 0.83 mg/dL 0.55-1.02 [facility] Work Phone: Comment on above: The validity of the calculated GFR & GFRAA in patients over 70 years has not been determined. Clinical correlation is essential. Serum or plasma ferritin jeremy surement (mass/volume)on 11-02-2021 Ferritin [Mass/Vol] 35 ng/mL 8-252 [facility] Work Phone: Serum or plasma urea nitroge n measurement (mass/volume)on 11-02-2021 Urea nitrogen [Mass/Vol] 8 mg/dL 7-18 [facility] Work Phone: Thin prep Papanicolaou smear with manual screeningon 11-02-2021 Thin prep Papanicolaou smear with manual screening 16 U/L 15-37 [facility] Work Phone: Thin prep Papanicolaou smear with manual screening 7 5-15 [facility] Work Phone: Thyroid Stim Hormone (TSH)on 11-02-2021 TSH 1.57 uIU/mL Normal 0.358-3.74 [facility] Comment on above: Order Comment: Order Date: 11/02/21 Order Info: 0786-1 - CMP Order Info: 3016-3 - TSH Order Info: 2498-4 - FE Order Info: 2276-4 - MOOKIE Performed By: #### L 503.6550, L100.0100, L501.9520, L500.4050, L503.6150 #### [facility] [address] [place], [address] Provider Note - ED v2on 10-14 Provider Note - ED v2 Provider Note - ED v2: Chart Review: HISTORY OF PRESENTING ILLNESS ADIN is a 15 year old Female and was seen by me at 02-Nov-2020 15:30. The historian is the patientmother. Triage Information: Most recent Vital Sign Value Date PAST MEDICAL HISTORY ATTESTATION: I have reviewed and confirmed nurse's/medic's notes for patient's medications, allergies, and medical, surgical, family and social history ALLERGIES/INTOLERANCES : Allergy Allergen: Omnicef Type: Drug Reaction: Hives/Urticaria Allergen: Tamiflu Type: Drug Reaction: Other HEALTH HISTORY: Seasonal allergies; no other known health issues. Family history: no pertinent history. Social history: will be a 12th grader in Fall 2020. Has a younger sister. Participates in [employer]. Denies tobacco/ETOH/illicit drug use. OUTPATIENT MEDICATIONS: Home Medications Review Status for Reconciliation: Complete Med Status: No Current Medications SIGNIFICANT EVENTS: No known significant events or known past surgical history. Is up to date with childhood vaccines (per mom). PULMONARY FUNCTION TECHNOLOGIST: Is : no Is : no RESULTS/VITAL SIGNS VITAL SIGNS: T PRBP SpO2O2(LPM) %FiO2 Method 02-Nov-2020 15:26:[id number]/7 4 MEDICAL DECISION MAKING/ED COURSE MDM/ED COURSE: This note was generated with voice recognition software and may contain errors including spelling, grammar, syntax, and misrecognization of what was dictated CHIEF COMPLAINT sports physical HISTORY OF PRESENT ILLNESS Patient presents today for a school sports physical - will be in 12th grade this Fall and plans to participate in cheer. She not currently on any medications or supplements; she does occasionally take OTC medications for seasonal allergies, but reports these are very well managed and at this point, sxs are not at all bothersome. Denies any other known health issues. She sees her checker cashier regularly for health maintenance visits, and reports is up to date with all immunizations and well visits. Denies any complaints. Has never had any c/o chest pain, needed to stop playing, or developed shortness of breath during exercise. Denies any personal or family history of cardiac or respiratory issues, headaches, seizures, dizziness, syncope, musculoskeletal issues, mental health issues, or other contraindications to clearance for sports and physical activity. REVIEW OF SYMPTOMS 10 systems reviewed negative aside from seasonal allergies as noted above. Denies any acute c/o. PHYSICAL EXAMINATION General: Pleasant teenager, in no acute distress. Alert and oriented. Accompanied by her mother, who helps to provide complete history. Eye: Pupils are equal, round and reactive to light. EOMI intact bilat. Conjunctiva clear. Wearing glasses. 20/20 OS, 20/20 OD HENT: Normocephalic. TMs and pharynx clear. Hearing grossly intact to whisper test and finger rub test bilat. Neck: Supple, Non-tender, No lymphadenopathy, no thyromegaly. Respiratory: Lungs are clear and equal to auscultation, no wheezing, rhonchi, or rales. Respirations are easy and unlabored. Symmetrical chest wall expansion. Cardiovascular: Normal rate, Regular rhythm. Normal S1S2. No murmurs, rubs, or gallops noted in seated or supine position. Gastrointestinal: Soft, non-tender, non-distended. No palpable masses or organomegaly. Bowel sounds normoactive. Musculoskeletal: Normal range of motion spine and all extremities; full strength all extremities proximally and distally, no joint tenderness, redness, swelling, laxity, or limitations. Patellar DTRs 2+ bilat. Able to perform full squat, heel/toe stand, and duck walk without difficulty. Gait unremarkable. Integumentary: [place], warm, dry, and Intact. No rashes appreciated. Neurologic: Alert, Oriented, Normal sensory, Normal motor function. proposal review analyst 2-12 grossly intact. Neg Romberg. Cognition and Speech: Oriented, Speech clear and coherent. Psychiatric: Cooperative, Appropriate mood & affect. MEDICAL DECISION MAKING Course: Unchanged; unremarkable physical exam. Plan: Based on today's history and exam, patient medically cleared for all sports without restriction, although encouraged to continue close follow-up with checker cashier for annual health maintenance visits. [employer] pre-participation sports exam and paperwork completed and handed to mother. Problem: need for medical clearance for sports participation. Data reviewed/analyzed: No labwork, imaging, or tests outside of physical exam done today; no previous documents available for review today. Mother present at today's visit to help provide complete history. Risk: Minimal risk of morbidity/mortality Problems addressed: Need for sports physical. Education/patient instructions: See above. Data Reviewed: vital signs and nurses notes CLINICAL IMPRESSION Diagnosis/Annotation: ED Dx Name:Sports ph (more content not included)... Normal [facility] Provider Note - ED v2on 10-15 Provider Note - ED v2 Provider Note - ED v2: Chart Review: HISTORY OF PRESENTING ILLNESS ADIN is a 14 year old Female and was seen by me at 12-Nov-2019 10:59. Triage Information: Most recent Vital Sign Value Date PAST MEDICAL HISTORY ATTESTATION: I have reviewed and confirmed nurse's/medic's notes for patient's medications, allergies, medical history, and surgical history ALLERGIES/INTOLERANCES : Allergy Allergen: Omnicef Type: Drug Reaction: Hives/Urticaria Allergen: Tamiflu Type: Drug Reaction: Other HEALTH HISTORY: No documented data. OUTPATIENT MEDICATIONS: Home Medications Review Status for Reconciliation: N/A Med Status: Patient Currently Takes Medications Drug Name: Azithromycin 5 Day Dose Pack 250 mg oral tablet Instructions: 250 milligram(s) orally once a day SIGNIFICANT EVENTS: No documented data. PULMONARY FUNCTION TECHNOLOGIST: Is : no Is : no RESULTS/VITAL SIGNS VITAL SIGNS: T PRBP SpO2O2(LPM) %FiO2 Method 12-Nov-2019 11:24:[id number] MEDICAL DECISION MAKING/ED COURSE MDM/ED COURSE: This note was generated with voice recognition software and may contain errors including spelling, grammar, syntax, and misrecognization of what was dictated Chief Complaint Sports physical History of Present Illness Patient presents and offers no complaints. Patient presents for a sports physical Review of Systems 10 systems reviewed negative with exception of history of present illness listed above Physical Examination General: Alert and oriented, No acute distress. Eye: Pupils are equal, round and reactive to light. HENT: Normocephalic Neck: Supple, Non-tender, No lymphadenopathy. Respiratory: Lungs are clear to auscultation, Respirations are non-labored, Breath sounds are equal, Symmetrical chest wall expansion. Cardiovascular: Normal rate, Regular rhythm. Gastrointestinal: Soft, non-tender, non-distended Musculoskeletal: Normal range of motion, normal strength, no tenderness, no swelling. Integumentary: Mohawk, warm, dry, and Intact. Neurologic: Alert, Oriented, Normal sensory, Normal motor function. Cognition and Speech: Oriented, Speech clear and coherent. Psychiatric: Cooperative, Appropriate mood & affect. Impression and Plan Course: Unchanged Plan: Patient will be discharged to participate in sports without restriction Patient Instructions: Sports physical CLINICAL IMPRESSION Diagnosis/Annotation: ED Dx Name:Sports physical Code:Z02.5 Dispostion: discharged Type: home ATTESTATION CRITICAL CARE TIME Is this a critically ill patient: no Electronic Signatures: Williams Kelly (ASSISTANT RESEARCH SCIENTIST-DIRECTOR OF PUBLIC HEALTH) (Signed 12-Nov-2019 11:30) Authored: Provider Note - ED v2 Last Updated: 12-Nov-2019 11:30 by Williams Kelly (ASSISTANT RESEARCH SCIENTIST-DIRECTOR OF PUBLIC HEALTH) Normal [facility] Strep Confirmon 08-13-2018 Strep Confirm Final Report: No Bet a Hemolytic Streptococci Isolated Normal [facility] Comment on above: Performed By: #### C D:[id number] #### FRANCIE Microbiology Subsection [employer] [place] [address] POC Strep Aon 08-10-2018 Strep A Screen Negative Normal Negative [facility] Comment on above: Performed By: #### C [id number] #### FRANCIE POC Subsection [employer] [place] [address] Strep A Scrn Int Ctl Positive Normal Positive [facility] Comment on above: Performed By: #### C D:[id number] #### FRANCIE POC Subsection [employer] [place] [id number] Vital Signs Date Time Vital Sign Value Performing Clinician Facility 01-06-2023 14:37-0400 Body temperature 99.7 [degF] Meseret Carlos APRN.DIRECTOR OF PUBLIC HEALTH Work Phone: [facility] 01-06-2023 14:37-0400 Body weight 97.25 kg [facility] ASSISTANT RESEARCH SCIENTIST.DIRECTOR OF PUBLIC HEALTH Work Phone: [facility] 01-06-2023 14:37-0400 Diastolic blood pressure 68 mm[Hg] [facility] ASSISTANT RESEARCH SCIENTIST.DIRECTOR OF PUBLIC HEALTH Work Phone: [facility] 01-06-2023 14:37-0400 Heart rate 102 /min [facility] ASSISTANT RESEARCH SCIENTIST.DIRECTOR OF PUBLIC HEALTH Work Phone: [facility] 01-06-2023 14:37-0400 Respiratory rate 18 /min [facility] ASSISTANT RESEARCH SCIENTIST.DIRECTOR OF PUBLIC HEALTH Work Phone: [facility] 01-06-2023 14:37-0400 SaO2% (BldA) [Mass fraction] 98 % [facility] ASSISTANT RESEARCH SCIENTIST.DIRECTOR OF PUBLIC HEALTH Work Phone: [facility] 01-06-2023 14:37-0400 Systolic blood pressure 106 mm[Hg] [facility] ASSISTANT RESEARCH SCIENTIST.DIRECTOR OF PUBLIC HEALTH Work Phone: [facility] 04-14-2022 10:14-0500 Body temperature 100.4 [degF] Erin Denbow PA-C Work Phone: [facility] 04-14-2022 10:14-0500 Body weight 98.88 kg Erin Denbow PA-C Work Phone: [facility] 04-14-2022 10:14-0500 Diastolic blood pressure 70 mm[Hg] Erin Denbow PA-C Work Phone: [facility] 04-14-2022 10:14-0500 Heart rate 98 /min Erin Denbow PA-C Work Phone: [facility] 04-14-2022 10:14-0500 Respiratory rate 16 /min Erin Denbow PA-C Work Phone: [facility] 04-14-2022 10:14-0500 SaO2% (BldA) [Mass fraction] 96 % Erin Denbow PA-C Work Phone: [facility] 04-14-2022 10:14-0500 Systolic blood pressure 122 mm[Hg] Erin Bailey PA-C Work Phone: [facility] 11-02-2020 17:26-0400 Body height 167.6 cm Vargas Santoro Other Phone: [facility] 11-02-2020 17:26-0400 Body temperature 97.88 [degF] Vargas Santoro Other Phone: [facility] 11-02-2020 17:26-0400 Diastolic blood pressure 74 mm[Hg] Vargas Santoro Other Phone: [facility] 11-02-2020 17:26-0400 Heart rate 94 /min Vargas Santoro Other Phone: [facility] 11-02-2020 17:26-0400 Respiratory rate 16 /min Vargas Santoro Other Phone: [facility] 11-02-2020 17:26-0400 Systolic blood pressure 126 mm[Hg] Vargas Santoro Other Phone: [facility] Encounters Encounter Date Encounter Type Care Provider Facility Start: 01-06-2023 End: 01-06-2023 ambulatory Facility:[facility] Start: 01-06-2023 End: 01-06-2023 Office outpatient visit 15 minutes Meseret Carlos APRN.CNP Work Phone: [facility] Comment on above: Sore throat (Primary Dx); Viral illness Start: 04-15-2022 Telephone encounter Adri Russell APRN.DIRECTOR OF PUBLIC HEALTH Work Phone: [facility] Comment on above: Results Start: 04-14-2022 End: 04-14-2022 ambulatory Facility:[facility] Start: 04-14-2022 End: 04-14-2022 Patient encounter procedure Erin Bailey PA-C Work Phone: [facility] Comment on above: Flu-like symptoms (P rimary Dx); Nausea Start: 03-14-2022 End: 03-14-[address] [facility] Work Phone: Start: 03-14-2022 End: 03-14-2022 Patient encounter procedure [facility] Start: 12-28-2021 End: 12-28-2021 Patient encounter procedure [facility], Specimen Start: 12-28-2021 End: 12-28-2021 ambulatory Vargas Santoro Facility:[facility] Start: 11-02-2021 End: 11-02-2021 Patient encounter procedure [facility], [facility] Start: 11-02-2021 End: 11-02-2021 ambulatory Vargas Santoro Facility:[facility] Start: 11-02-2020 End: 11-02-2020 Emergency department patient visit Kayy Skelton [facility] Start: 08-10-2018 End: 08-10-2018 Patient encounter procedure Williams Kelly Facility:[facility] Procedures Date Procedure Procedure Detail Performing Clinician Start: 01-06-2023 STREP A MOLECULAR (POC) Riana Danielle PA-C Work Phone: Start: 04-14-2022 COVID WITH FLUA+B, ROUTINE Erin Bailey PA-C Work Phone: Plan of Treatment Date Care Activity Detail Author Start: 12-14-2022 Influenza vaccination Influenza Vaccine (#1) [facility] Start: 10-03-2022 Urine microalbumin profile DTaP,Tdap,Td Vaccine (1 - Tdap) [facility] Start: 04-15-2022 DEPRESSION ASSESSMENT DEPRESSION ASSESSMENT [facility] Start: 12-14-2021 Influenza vaccination INFLUENZA (#1) [facility] Start: 10-03-2021 CHLAMYDIA SCREENING (18-24) CHLAMYDIA SCREENING (18-24) [facility] Start: 10-03-2021 GC (GONORRHEA) SCREENING (18-24) GC (GONORRHEA) SCREENING (18-24) [facility] Start: 10-03-2021 HEPATITIS C SCREENING HEPATITIS C SCREENING [facility] Start: 10-03-2021 HIV SCREENING HIV SCREENING [facility] Start: 2019 Meningococcal B Vaccine: Consider Based On Risk (1 of 2 - Patient Seeks Protection) Meningococcal B Vaccine: Consider Based On Risk (1 of 2 - Patient Seeks Protection) [facility] Start: 2019 MENINGOCOCCAL CONJUGATE (1 - 2-dose series) MENINGOCOCCAL CONJUGATE (1 - 2-dose series) [facility] Start: 10-03-2017 PEDS TO ADULT TRANSITION ANNUAL ASSESSMENT PEDS TO ADULT TRANSITION ANNUAL ASSESSMENT [facility] Start: 2015 PEDS TO ADULT TRANSITION INITIAL DISCUSSION PEDS TO ADULT TRANSITION INITIAL DISCUSSION [facility] Start: 10-03-2014 HPV VACCINE (1 - 2-dose series) HPV VACCINE (1 - 2-dose series) [facility] Start: 10-03-2013 MENINGOCOCCAL B: Consider based on risk (1 of 2 - Risk Bexsero 2-dose series) MENINGOCOCCAL B: Consider based on risk (1 of 2 - Risk Bexsero 2-dose series) [facility] Start: 10-03-2012 HPV Vaccine (1 - 2-dose series) HPV Vaccine (1 - 2-dose series) [facility] Start: 10-03-2010 Urine microalbumin profile DTAP,TDAP,TD (1 - Tdap) [facility] Start: 04-04-2004 COVID-19 VACCINE (#1) COVID-19 VACCINE (#1) [facility] Start: 2003 HEPATITIS B (1 of 3 - 3-dose series) HEPATITIS B (1 of 3 - 3-dose series) [facility] Start: 2003 Hepatitis B Vaccine (1 of 3 - 3-dose series) Hepatitis B Vaccine (1 of 3 - 3-dose series) [facility] Alternaria alternata IgE Ab [Units/volume] in Serum [facility] Work Phone: British house dust mite IgE Ab [Units/volume] in Serum [facility] Work Phone: Berm[place] grass IgE Ab [Units/volume] in Serum [facility] Work Phone: Cat dander IgE Ab [Units/volume] in Serum [facility] Work Phone: Common Ragweed IgE A b [Units/volume] in Serum [facility] Work Phone: Dog epithelium IgE A b [Units/volume] in Serum [facility] Work Phone: house dust mite IgE Ab [Units/volume] in Serum [facility] Work Phone: [place] blue grass IgE Ab [Units/volume] in Serum [facility] Work Phone: Mouse urine proteins [facility] Work Phone: Plantain (Eritrean) [facility] Work Phone: White [place]m IgE Ab [Units/volume] in Serum [facility] Work Phone: [place] IgE Ab [Units/volume] in Serum [facility] Work Phone: Immunizations Immunization Date Immunization Notes Care Provider Jose Luis velazquez 02-14-2007 influenza virus vaccine, unspecified formulation Meseret Carlos APRN.[facility] Work Phone: [facility] Payers Date Payer Category Payer Self-pay [id number] 2021 Unknown [id number] 2018 Unknown 1970 Unknown [id number] Unknown [id number] Unknown [id number] Unknown [id number] Social History Date Type Detail Facility [facility] Start: 12-15-2020 End: 12-15-2020 Tobacco smoking consumption unknown [facility] Start: 2003 Sex Assigned At Female [facility] Work Phone: Start: 04-14-2022 Tobacco smoking status NHIS Never smoked tobacco [facility] Work Phone: Start: 04-14-2022 Tobacco use and exposure Smokeless tobacco non-user [facility] Work Phone: Start: 2003 Sex Assigned At Not on file [facility] Start: 01-06-2023 History of Social function [facility] Start: 01-06-2023 Tobacco use panel [facility] NEGATED: Highlighted rowStart: DENYSF History of tobacco use Passive smoker [facility] Work Phone: Progress note 01-06-2023 Note Date & Type Note Facility 01-06-2023 Note HNO ID: [id number] Author: Meseret Carlos APRN.DIRECTOR OF PUBLIC HEALTH Service: ? Author Type: Nurse Practitioner Type: Progress Notes Filed: 01/06/2023 3:14 PM Note Text: Subjective HPI Nontoxic-appearing female presents urgent care accompanied with mother. Chief complaint sore throat headache fever fatigue. Duration of symptoms 2 days. Associated symptoms listed above. Most predominant symptom today is sore throat. Noticed some white spots on back of her tonsils. Presents today for evaluation. No known sick contacts. Is a college student. Has not taken any OTC medications recently. Denies any patient is decreased range of motion of neck. Denies any high fever body aches chills productive cough chest pain shortness of breath pleuritic pain hemoptysis nausea vomiting abdominal pain change in bowel or bladder habits. Past medical history prescription medication use and allergies reviewed. .Patient presents with: Sore Throat: SHEPARD, fever x2 days History reviewed. No pertinent past medical history. History reviewed. No pertinent surgical history. ALLERGIES Cefdinir and Oseltamivir MEDICATIONS busPIRone (BUSPAR) 5 mg tablet Norethindrone Acet-Ethinyl Est 1-20 mg-mcg per tablet ibuprofen (MOTRIN) 800 mg tablet Take 1 tablet by mouth every 8 hours as needed for pain. Take with food. ondansetron orally disintegrating (ZOFRAN ODT) 4 mg disintegrating tablet Take 1 tablet by mouth every 6 hours as needed for nausea/vomiting. History reviewed. No pertinent family history. Social History Tobacco Use Smoking status: Never Passive exposure: Never Smokeless tobacco: Never BP 106/68 Pulse 102 Temp 37.6 ?C (99.7 ?F) Resp 18 Wt 97.3 kg (214 lb 6.4 oz) SpO2 98% Review of Systems Constitutional: Positive for chills, fever and malaise/fatigue. HENT: Positive for sore throat. Negative for congestion, ear discharge, ear pain and sinus pain. Eyes: Negative for blurred vision, pain, discharge and redness. Respiratory: Negative for cough, hemoptysis, sputum production, shortness of breath, wheezing and stridor. Cardiovascular: Negative for chest pain. Gastrointestinal: Negative for abdominal pain, diarrhea, nausea and vomiting. Musculoskeletal: Positive for myalgias. Skin: Negative for itching and rash. Neurological: Negative for dizziness and headaches. Objective Physical Exam Constitutional: General: She is not in acute distress. Appearance: She is not diaphoretic. HENT: Head: Normocephalic. Jaw: No trismus, tenderness, swelling or pain on movement. Right Ear: Tympanic membrane, ear canal and external ear normal. Left Ear: Tympanic membrane, ear canal and external ear normal. Nose: Congestion present. Mouth/Throat: Lips: Mohawk. Mouth: Mucous membranes are moist. Pharynx: Oropharynx is clear. Uvula midline. Posterior oropharyngeal erythema present. No pharyngeal swelling, oropharyngeal exudate or uvula swelling. Tonsils: Tonsillar exudate present. No tonsillar abscesses. 2+ on the right. 2+ on the left. Eyes: Conjunctiva/sclera: Conjunctivae normal. Pupils: Pupils are equal, round, and reactive to light. Cardiovascular: Rate and Rhythm: Normal rate and regular rhythm. Heart sounds: Normal heart sounds. Pulmonary: Effort: Pulmonary effort is normal. No tachypnea, accessory muscle usage or respiratory distress. Breath sounds: Normal breath sounds. No stridor. No wheezing, rhonchi or rales. Abdominal: General: There is no distension. Palpations: Abdomen is soft. Tenderness: There is no abdominal tenderness. There is no guarding or rebound. Musculoskeletal: Cervical back: Normal range of motion and neck supple. No edema, erythema, rigidity or tenderness. No pain with movement. Normal range of motion. Lymphadenopathy: Cervical: No cervical adenopathy. Skin: General: Skin is warm and dry. Neurological: Mental Status: She is alert and oriented to person, place, and time. ASSESSMENT/PLAN: 1. Sore throat - ICD9: 462, ICD10: J02.9 (primary diagnosis) - STREP A MOLECULAR (POC) 2. Viral illness - ICD9: 079.99, ICD10: B34.9 Strep test negative. Diagnosed with viral illness. Suspicious of mono. Will not test due to the 2 days of illness at this time. Follow-up with PCP on Saturday if symptoms are not improving. Red flags prompt reevaluation discussed. Patient was educated on supportive therapies. Patient was instructed to immediately proceed to emergency room for any new, worsening, or symptoms lasting longer than anticipated. The patient's clinical presentation is otherwise unremarkable at this time. Based on exam and clinical finding, the patient is stable for discharge. Plan of care was discussed with patient. Patient verbalizes understanding and agrees to plan of care. This note was generated using [employer] software. It may contain errors in wording, punctuation, or spelling. Meseret Carlos APRN.[facility] History of Present illness Narrative 01-06-2023 Meseret Carlos APRN.DIRECTOR OF PUBLIC HEALTH - 01/06/2023 2:49 PM EDT Note Date & Type Note Facility 01-06-2023 History of Presen t illness Narrative Subjective HPI Nontoxic-appearing female presents urgent care accompanied with mother. Chief complaint sore throat headache fever fatigue. Duration of symptoms 2 days. Associated symptoms listed above. Most predominant symptom today is sore throat. Noticed some white spots on back of her tonsils. Presents today for evaluation. No known sick contacts. Is a college student. Has not taken any OTC medications recently. Denies any patient is decreased range of motion of neck. Denies any high fever body aches chills productive cough chest pain shortness of breath pleuritic pain hemoptysis nausea vomiting abdominal pain change in bowel or bladder habits. Past medical history prescription medication use and allergies reviewed. .Patient presents with: Sore Throat: SHEPARD, fever x2 days History reviewed. No pertinent past medical history. History reviewed. No pertinent surgical history. ALLERGIES Cefdinir and Oseltamivir MEDICATIONS busPIRone (BUSPAR) 5 mg tablet Norethindrone Acet-Ethinyl Est 1-20 mg-mcg per tablet ibuprofen (MOTRIN) 800 mg tablet Take 1 tablet by mouth every 8 hours as needed for pain. Take with food. ondansetron orally disintegrating (ZOFRAN ODT) 4 mg disintegrating tablet Take 1 tablet by mouth every 6 hours as needed for nausea/vomiting. History reviewed. No pertinent family history. Social History Tobacco Use Smoking status: Never Passive exposure: Never Smokeless tobacco: Never BP 106/68 Pulse 102 Temp 37.6 C (99.7 F) Resp 18 Wt 97.3 kg (214 lb 6.4 oz) SpO2 98% Review of Systems Constitutional: Positive for chills, fever and malaise/fatigue. HENT: Positive for sore throat. Negative for congestion, ear discharge, ear pain and sinus pain. Eyes: Negative for blurred vision, pain, discharge and redness. Respiratory: Negative for cough, hemoptysis, sputum production, shortness of breath, wheezing and stridor. Cardiovascular: Negative for chest pain. Gastrointestinal: Negative for abdominal pain, diarrhea, nausea and vomiting. Musculoskeletal: Positive for myalgias. Skin: Negative for itching and rash. Neurological: Negative for dizziness and headaches. Objective Physical Exam Constitutional: General: She is not in acute distress. Appearance: She is not diaphoretic. HENT: Head: Normocephalic. Jaw: No trismus, tenderness, swelling or pain on movement. Right Ear: Tympanic membrane, ear canal and external ear normal. Left Ear: Tympanic membrane, ear canal and external ear normal. Nose: Congestion present. Mouth/Throat: Lips: [place]awk. Mouth: Mucous membranes are moist. Pharynx: Oropharynx is clear. Uvula midline. Posterior oropharyngeal erythema present. No pharyngeal swelling, oropharyngeal exudate or uvula swelling. Tonsils: Tonsillar exudate present. No tonsillar abscesses. 2+ on the right. 2+ on the left. Eyes: Conjunctiva/sclera: Conjunctivae normal. Pupils: Pupils are equal, round, and reactive to light. Cardiovascular: Rate and Rhythm: Normal rate and regular rhythm. Heart sounds: Normal heart sounds. Pulmonary: Effort: Pulmonary effort is normal. No tachypnea, accessory muscle usage or respiratory distress. Breath sounds: Normal breath sounds. No stridor. No wheezing, rhonchi or rales. Abdominal: General: There is no distension. Palpations: Abdomen is soft. Tenderness: There is no abdominal tenderness. There is no guarding or rebound. Musculoskeletal: Cervical back: Normal range of motion and neck supple. No edema, erythema, rigidity or tenderness. No pain with movement. Normal range of motion. Lymphadenopathy: Cervical: No cervical adenopathy. Skin: General: Skin is warm and dry. Neurological: Mental Status: She is alert and oriented to person, place, and time. ASSESSMENT/PLAN: 1. Sore throat - ICD9: 462, ICD10: J02.9 (primary diagnosis) - STREP A MOLECULAR (POC) 2. Viral illness - ICD9: 079.99, ICD10: B34.9 Strep test negative. Diagnosed with viral illness. Suspicious of mono. Will not test due to the 2 days of illness at this time. Follow-up with PCP on Saturday if symptoms are not improving. Red flags prompt reevaluation discussed. Patient was educated on supportive therapies. Patient was instructed to immediately proceed to emergency room for any new, worsening, or symptoms lasting longer than anticipated. The patient's clinical presentation is otherwise unremarkable at this time. Based on exam and clinical finding, the patient is stable for discharge. Plan of care was discussed with patient. Patient verbalizes understanding and agrees to plan of care. This note was generated using [employer] software. It may contain errors in wording, punctuation, or spelling. Meseret Carlos APRN.CNP documented in this encounter [facility] Note 04-15-2022 Telephone Encounter - Rakel Boogie LPN - 04/15/2022 8:37 AM ESTTelephone Encounter - Adri Russell APRN.CNP - 04/15/2022 7:41 AM EST Note Date & Type Note Facility 04-15-2022 Miscellaneous Notes Formattin g of this note might be different from the original. Patient's mother notified.Rakel Boogie LPN Please notify of POSITIVE INFLUENZA A and negative covid test. Continue comfort measures for symptoms as discussed at visit. Any worsening symptoms follow up with PCP or ER. Adri Russell APRN.CNP documented in this encounter [facility] Influenza virus A and B RNA and SARS-CoV-2 (COVID-19) N gene panel YOVANY+probe (Resp) 04-14-2022 Note Date & Type Note Facility 04-14-2022 Influenza virus A and B RNA and SARS-CoV-2 (COVID-19) N gene panel YOVANY+probe (Resp) COVID 19 RESULT: SARS-CoV-2 (Agent of COVID-19) Not Detected by RT-PCR or equivalent method. shruthi [id number]_[employer] (VIVI)_EUA This test was developed and its performance characteristics determined by [facility]'s [facility] [place]. This test has been authorized by FDA under an Emergency Use Authorization (EUA). This test has been validated in accordance with the FDA's Guidance Document Policy for Diagnostics Testing in Laboratories Certified to Perform High Complexity Testing under CLIA prior to Emergency use Authorization for Coronavirus Disease 2019 during the Public Health Emergency issued on June 13, 2019. Test performed by [facility], [facility] [place], [address] [place] [address]. INFLUENZA A PCR: Positive for Influenza A by RT-PCR INFLUENZA B PCR: Negative for Influenza B by RT-PCR [facility] Comment on above: Performed By: #### [id number] #### [facility] CLIA [id number] [address] [place] [address] [place] Progress note 04-14-2022 Note Date & Type Note Facility 04-14-2022 Note HNO ID: [id number] Author: Erin Bailey PA-C Service: ? Author Type: Physician Tufter Type: Progress Notes Filed: 04/14/2022 11:24 AM Note Text: Subjective HPI HPI Adin Pearce is a 16 year old female who presents today for CC of sore throat, congestion, body aches, chills, facial pain/perssure, chills/sweats since yesterday. Notes some nausea as well, but could be from the covid swab. Pt has tried advil with minimal relief in symptoms. BP 122/70 Pulse 98 Temp (!) 38 ?C (100.4 ?F) Resp 16 Wt 98.9 kg (218 lb) SpO2 96% ALLERGIES Allergen Reactions Cefdinir Diarrhea, Hives Oseltamivir Other: See Comments There is no problem list on file for this patient. No family history on file. Social History Tobacco Use Smoking status: Never Passive exposure: Never Smokeless tobacco: Never Review of Systems Constitutional: Positive for chills, fever and malaise/fatigue. HENT: Positive for congestion and sinus pain. Negative for ear pain and sore throat. Respiratory: Negative for cough, sputum production, shortness of breath and wheezing. Gastrointestinal: Positive for nausea. Negative for vomiting. Musculoskeletal: Positive for back pain and myalgias. Neurological: Negative for headaches. Objective BP 122/70 Pulse 98 Temp (!) 38 ?C (100.4 ?F) Resp 16 Wt 98.9 kg (218 lb) SpO2 96% Physical Exam Constitutional: General: She is not in acute distress. Appearance: She is well-developed. She is ill-appearing (Mild; Generally fatigued appearance.). She is not toxic-appearing. HENT: Head: Normocephalic. Nose: Mucosal edema present. No rhinorrhea. Right Sinus: No maxillary sinus tenderness or frontal sinus tenderness. Left Sinus: No maxillary sinus tenderness or frontal sinus tenderness. Mouth/Throat: Pharynx: Uvula midline. Posterior oropharyngeal erythema present. No oropharyngeal exudate. Tonsils: No tonsillar abscesses. Eyes: General: Lids are normal. Conjunctiva/sclera: Conjunctivae normal. Cardiovascular: Rate and Rhythm: Normal rate and regular rhythm. Heart sounds: S1 normal and S2 normal. No friction rub. Pulmonary: Effort: Pulmonary effort is normal. Breath sounds: Normal breath sounds. No wheezing, rhonchi or rales. Lymphadenopathy: Head: Right side of head: No submental, submandibular, tonsillar, preauricular, posterior auricular or occipital adenopathy. Left side of head: No submental, submandibular, tonsillar, preauricular, posterior auricular or occipital adenopathy. Cervical: Right cervical: No superficial or posterior cervical adenopathy. Left cervical: No superficial or posterior cervical adenopathy. Neurological: Mental Status: She is alert and oriented to person, place, and time. ASSESSMENT/PLAN: 1. Flu-like symptoms - ICD9: 780.99, ICD10: R68.89 (primary diagnosis) Suspect flu based on clinical presentation. Covid and flu testing ordered; Results will be released to [facility] in 24-48 hours.Discussed quarantine, social distancing, hand washing/proper hygiene. Rest, fluids, Symptomatic tx with IBU and Tylenol discussed. - IBUPROFEN 800 MG TABLET 2. Nausea - ICD9: 787.02, ICD10: R11.0 Rx for zofran to assist w/ nausea. Discussed medication indications, proper use, and potential adverse effects. All questions and concerns addressed to patient satisfaction. - ONDANSETRON 4 MG DISINTEGRATING TABLET Pt advised to see PCP if symptoms persist or progress. Reviewed red flags with patient and when to seek care sooner. The patient indicates understanding of these issues and agrees with the plan. Erin Bailey PA-C [facility] Instructions 04-14-2022 Patient Instructions Note Date & Type Note Facility 04-14-2022 Instructions Erin Bailey PA-C - 04/14/2022 10:44 AM EST Sudafed behind the counter Can alternate between Ibuprofen (800 MG) and Tylenol (1000) mg every 3-4 hours Max dosing of Ibuprofen 2400 mg in 24 hour period Max dosing of Tylenol is 3000 mg in 24 hour period [facility] PATIENT INFO INFLUENZA INTRODUCTION Influenza (commonly called the flu) is a highly contagious illness that can occur in children or adults of any age. It occurs more often in the winter months because people spend more time in close contact with one another. The flu is spread easily from [id number] by coughing, sneezing, or touching surfaces. Every year, complications of the flu require more than 200,000 people in the [place] to be hospitalized. Serious illness is more likely in the very young, older adults, women, and people who have certain health problems such as asthma or other forms of lung disease. There have been several widespread flu outbreaks (called pandemics), which led to the deaths of many people worldwide. These outbreaks occurred when new strains of influenza viruses formed (often from pigs or birds) and humans became infected because they had no immunity to these viruses. FLU SYMPTOMS Symptoms of seasonal flu can vary from person to person, but usually include: Fever (temperature higher than 100 F or 37.8 C) Headache and muscle aches Fatigue Cough and sore throat may also be present People with the flu usually have a fever for two to five days. This is different than fever caused by other upper respiratory viruses, which usually resolve after 24 to 48 hours. Some people have cold-like symptoms (runny nose, sore throat) during the flu while others have fever and muscle aches. Flu symptoms usually improve over two to five days, although the illness may last for a week or more. Weakness and fatigue may persist for several weeks Flu complications -- Complications of influenza occur in some people; pneumonia is the most common complication. Pneumonia is a serious infection of the lungs, and is more likely to occur in people over the age of 65, people who live in snf care facilities (nursing homes), and those with other illnesses such as diabetes or conditions affecting the heart or lungs. FLU DIAGNOSIS Influenza is usually diagnosed based on symptoms (fever, cough and muscle aches). Lab testing for influenza is performed in certain cases, such as during a new influenza outbreak in a community. FLU TREATMENT When to seek help -- Most people with the flu recover within one to two weeks without treatment. However, serious complications of the flu can occur. Call your doctor or nurse immediately if: You feel short of breath or have trouble breathing You have pain or pressure in your chest or stomach You have signs of being dehydrated, such as dizziness when standing or not passing urine You feel confused You cannot stop vomiting or you cannot drink enough fluids There are several groups of people who are at increased risk for flu complications. These include women, young children (<5 years of age, and especially <2 years of age), people ?65 years of age, and people with certain diseases such as chronic lung disease (such as asthma), heart disease, diabetes, immunosuppressing conditions (such as HIV infection or transplantation), and some other diseases. If you or your child has flu symptoms and is at increased risk of flu complications, you should call your healthcare provider. Treat symptoms -- Treating the symptoms of influenza can help you to feel better, but will not make the flu go away faster. Rest until the flu is fully resolved, especially if the illness has been severe Fluids -- Drink enough fluids so that you do not become dehydrated. One way to leather tacker if you are drinking enough is to look at the color of your urine. Normally, urine should be light yellow to nearly colorless. If you are drinking enough, you should pass urine every three to five hours. Acetaminophen (such as Tylenol and other brands) can relieve fever, headache, and muscle aches. Aspirin, and medicines that include aspirin (eg, bismuth subsalicylate; PeptoBismol), are not recommended for children under 18 because aspirin can lead to a serious disease called Jossy syndrome. Cough medicines are not usually helpful; cough usually resolves without treatment. We do not recommend cough or cold medicine for children under age six years. Antiviral treatment -- Antiviral medicines can be used to treat or prevent influenza. When used as a treatment, the medicine does not eliminate flu symptoms, although it can reduce the severity and duration of symptoms by about one day. Not every person with influenza needs an antiviral medicine; the decision is based upon your risk of developing complications of influenza. Antiviral treatment is most effective for seasonal influenza when it is taken within the first 48 hours of flu symptoms. Side effects -- Zanamivir and oseltamivir can cause mild side effects, including nausea and vomiting; zanamivir, which is inhaled, can cause difficulty breathing in some cases. Most people are able to continue the medicine despite the side effects. Antibiotics -- Antibiotics are NOT useful for treating viral illnesses such as influenza. Antibiotics should only used if there is a bacterial complication of the flu such as bacterial pneumonia, ear infection, or sinusitis. Antibiotics can cause side effects and lead to development of antibiotic resistance. documented in this encounter [facility] History of Present illness Narrative 04-14-2022 Erin Bailey PA-C - 04/14/2022 10:36 AM EST Note Date & Type Note Facility 04-14-2022 History of Presen t illness Narrative Subjective HPI HPI Adin Pearce is a 16 year old female who presents today for CC of sore throat, congestion, body aches, chills, facial pain/perssure, chills/sweats since yesterday. Notes some nausea as well, but could be from the covid swab. Pt has tried advil with minimal relief in symptoms. BP 122/70 Pulse 98 Temp (!) 38 C (100.4 F) Resp 16 Wt 98.9 kg (218 lb) SpO2 96% ALLERGIES Allergen Reactions Cefdinir Diarrhea, Hives Oseltamivir Other: See Comments There is no problem list on file for this patient. No family history on file. Social History Tobacco Use Smoking status: Never Passive exposure: Never Smokeless tobacco: Never Review of Systems Constitutional: Positive for chills, fever and malaise/fatigue. HENT: Positive for congestion and sinus pain. Negative for ear pain and sore throat. Respiratory: Negative for cough, sputum production, shortness of breath and wheezing. Gastrointestinal: Positive for nausea. Negative for vomiting. Musculoskeletal: Positive for back pain and myalgias. Neurological: Negative for headaches. Objective BP 122/70 Pulse 98 Temp (!) 38 C (100.4 F) Resp 16 Wt 98.9 kg (218 lb) SpO2 96% Physical Exam Constitutional: General: She is not in acute distress. Appearance: She is well-developed. She is ill-appearing (Mild; Generally fatigued appearance.). She is not toxic-appearing. HENT: Head: Normocephalic. Nose: Mucosal edema present. No rhinorrhea. Right Sinus: No maxillary sinus tenderness or frontal sinus tenderness. Left Sinus: No maxillary sinus tenderness or frontal sinus tenderness. Mouth/Throat: Pharynx: Uvula midline. Posterior oropharyngeal erythema present. No oropharyngeal exudate. Tonsils: No tonsillar abscesses. Eyes: General: Lids are normal. Conjunctiva/sclera: Conjunctivae normal. Cardiovascular: Rate and Rhythm: Normal rate and regular rhythm. Heart sounds: S1 normal and S2 normal. No friction rub. Pulmonary: Effort: Pulmonary effort is normal. Breath sounds: Normal breath sounds. No wheezing, rhonchi or rales. Lymphadenopathy: Head: Right side of head: No submental, submandibular, tonsillar, preauricular, posterior auricular or occipital adenopathy. Left side of head: No submental, submandibular, tonsillar, preauricular, posterior auricular or occipital adenopathy. Cervical: Right cervical: No superficial or posterior cervical adenopathy. Left cervical: No superficial or posterior cervical adenopathy. Neurological: Mental Status: She is alert and oriented to person, place, and time. ASSESSMENT/PLAN: 1. Flu-like symptoms - ICD9: 780.99, ICD10: R68.89 (primary diagnosis) Suspect flu based on clinical presentation. Covid and flu testing ordered; Results will be released to [facility] in 24-48 hours.Discussed quarantine, social distancing, hand washing/proper hygiene. Rest, fluids, Symptomatic tx with IBU and Tylenol discussed. - IBUPROFEN 800 MG TABLET 2. Nausea - ICD9: 787.02, ICD10: R11.0 Rx for zofran to assist w/ nausea. Discussed medication indications, proper use, and potential adverse effects. All questions and concerns addressed to patient satisfaction. - ONDANSETRON 4 MG DISINTEGRATING TABLET Pt advised to see PCP if symptoms persist or progress. Reviewed red flags with patient and when to seek care sooner. The patient indicates understanding of these issues and agrees with the plan. Erin Bailey PA-C documented in this encounter [facility] Evaluation note Note Date & Type Note Facility Evaluation note No assessment information availa [facility] Work Phone: Evaluation note Note Date & Type Note Facility Evaluation note Diagnosis Flu-like symptoms- Primary Other general symptoms Nausea Nausea alone documented in this encounter [facility] Evaluation note Note Date & Type Note Facility Evaluation note Diagnosis Sore throat- Primary Acute pharyngitis Viral illness Unspecified viral infection, in conditions classified elsewhere and of unspecified site documented in this encounter [facility] Summary Purpose Family History No Family History Records FoundNo Family History Records FoundNo Family History Records FoundNo Family History Records Found Advance Directives No Advanced Directives Records FoundNo Advanced Directives Records FoundNo Advanced Directives Records FoundNo Advanced Directives Records Found Health Concerns Infection Onset Date Last Indicated Resolved Time COVID-19 Rule-Out 04/14/2022 04/14/2022 04/14/2022 9:52 PM EST Additional Source Comments INFORMATION SOURCE (unrecogn ized section and content) DATE CREATED AUTHOR 08/22/2018 [facility] DATE CREATED AUTHOR AUTHOR'S ORGANIZ ATION 11/09/2020 [facility] DATE CREATED AUTHOR AUTHOR'S ORGANIZ ATION 03/21/[address] [facility] DATE CREATED AUTHOR AUTHOR'S ORGANIZ ATION 01/07/[address] [facility] <item> Privacy Markings (unrecogniz ed section and content) Section Author: Mckeon, Maribell PROHIBITION ON REDISCLOSURE OF CONFIDENTIAL INFORMATION This notice accompanies a disclosure of information concerning a client made to you with the consent of such client. Goals (unrecognized section and content) Goals may be documented in a n alternate sectionGoals may be documented in an alternate section Source Comments (unrecognize d section and content) In the event this informatio n is protected by the Federal Confidentiality of Alcohol and Drug Abuse Patient Records regulations: The Federal rules restrict any use of the information to criminally investigate or prosecute any alcohol or drug abuse patient.[facility] the event this information is protected by the Federal Confidentiality of Alcohol and Drug Abuse Patient Records regulations: The Federal rules restrict any use of the information to criminally investigate or prosecute any alcohol or drug abuse patient.[facility] the event this information is protected by the Federal Confidentiality of Alcohol and Drug Abuse Patient Records regulations: The Federal rules restrict any use of the information to criminally investigate or prosecute any alcohol or drug abuse patient.[facility] Reason for Visit (unrecogniz ed section and content) Reason Comments Sinus Problem bodyaches, sore thro at x 1 day Reason Comments Results Reason Comments Sore Throat SHEPARD, fever x2 days FOR RECORDS PERTAINING TO PATIENTS WHO ARE OR HAVE BEEN ENROLLED IN A CHEMICAL DEPENDENCY/SUBSTANCEABUSE PROGRAM, SOME INFORMATION MAY BE OMITTED. This clinical summary was aggregated from multiple sources. Caution should be exercised in using it in the provision of clinical care. This summary normalizes information from multiple sources, and as a consequence, information in this document may materially change the coding, format and clinical context of patient data. In addition, data may be omitted in some cases. CLINICAL DECISIONS SHOULD BE BASED ON THE PRIMARY CLINICAL RECORDS. [facility] [employer] [facility]. provides no warranty or guarantee of the accuracy or completeness of information in this document.
== END | disposition home or self-care (01) ==
LOC: MTLAB 07:42
PROVIDERS: PCP Family Medicine; Referring Provider Dermatology Pediatric Dermatology; Visit Provider Dermatology Pediatric Dermatology
DX: D89.89 Other specified disorders involving the immune mechanism, not elsewhere classified (principal); L64.8 Other androgenic alopecia; E28.2 Polycystic ovarian syndrome
CPT/HCPCS: 36415; 82533

== ENCOUNTER → 2024-10-15 | Outpatient (CLI) | payer OTHER, SELFPAY | END | disposition home or self-care (01) | LOC: US 12:02 | PROVIDERS: PCP Family Medicine; Referring Provider Family Medicine; Visit Provider Family Medicine | DX: E24.9 Cushing's syndrome, unspecified (principal) | CPT/HCPCS: 76770 ==

== ENCOUNTER → 2024-10-22 | Outpatient (CLI) | payer OTHER, SELFPAY ==
[2024-10-22 14:15] LABS: Creatinine, Urine (random) 90.40 mg/dL (28.00-217.00)
[2024-10-22 14:35] LABS: 24HR. Urine Creatinine 1265.6 mg/24 hr (740.0-1540.0); Protein, Urine (Random) 6.2 mg/dL (0.0-12.0); Protein:Creat Ratio 69 mg/g CRE (0-200)
== END | disposition home or self-care (01) ==
LOC: LABSPEC 12:35
PROVIDERS: PCP Family Medicine; Referring Provider Family Medicine; Visit Provider Family Medicine
DX: R79.89 Other specified abnormal findings of blood chemistry (principal)
CPT/HCPCS: 81050; 82570; 84156

== ENCOUNTER → 2024-11-11 | Outpatient (CLI) | payer OTHER, SELFPAY ==
[2024-11-11 13:46] LABS: Creatinine, Urine (random) 82.20 mg/dL (28.00-217.00)
[2024-11-11 15:36] LABS: Protein, Urine (Random) 6.4 mg/dL (0.0-12.0)
[2024-11-11 15:37] LABS: 24HR. Urine Creatinine 1590.6 mg/24 hr (740.0-1540.0); Protein:Creat Ratio 77 mg/g CRE (0-200)
[2024-11-16 09:08] LABS: Cortisol, Free 24Ur 29 ug/24 hr (6-42)
== END | disposition home or self-care (01) ==
LOC: LABSPEC 11:02
PROVIDERS: PCP Family Medicine; Referring Provider Family Medicine; Visit Provider Family Medicine
DX: R79.89 Other specified abnormal findings of blood chemistry (principal)
CPT/HCPCS: 81050; 82530; 82570; 84156